=== PATIENT | male | born 1960 | race African-American/Black ===

== ENCOUNTER 2017-08-06 12:11 | Outpatient (CLI) | payer OTHER ==
--- NOTE | 2017-08-06 16:24 | MRI ---
CERVICAL SPINE MRI WITHOUT CONTRAST: Date: 08/06/17 HISTORY: Left-sided neck pain. Difficulty with range of motion. COMPARISON: None. TECHNIQUE: MRI of the cervical spine is performed without Gadolinium administration. Multisequential, multiplana r imaging is performed. FINDINGS: Appropriate T1 marrow signal intensity of the cervical vertebra. Cervical spine vertebral body height is maintained. No fracture. No significant STIR hyperintensity to suggest vertebral body edema or li gamentous injury. Visualized brain parenchyma, cervicomedullary junction, cervical cord, and the upper thoracic cord dey ve a normal size and signal intensity. C2-C3: No significant disc osteophyte complex. No significant central canal stenosis. Foramina are patent. C3-C4: Central disc osteophyte complex causes mass effect upon the ventral thecal sac and effaces the ventra l subarachnoid space. Mild deformity of the cervical cord, without T2 hyperintensity of the cord. Mil d central canal stenosis. Degenerative change in bilateral uncovertebral joints result in moderate bi lateral foraminal narrowing. C4-C5: Broad based disc osteophyte complex abuts the thecal sac. Mild central canal stenosis. Mild bilateral foraminal narrowing due to degenerative change of the uncovertebral joints. C5-C6: Broad based disc osteophyte complex abuts the thecal sac. Mild central canal stenosis. Degenerative c hanges of right and left uncovertebral joint result in moderate right and mild left foraminal narrowi ng. C6-C7: Broad based disc osteophyte complex abuts the thecal sac. No significant central canal stenosis. Mild right and mild to moderate left foraminal narrowing due to degenerative changes of the uncovertebral joint. C7-T1: No significant disc osteophyte complex. No significant central canal stenosis. Neural foramina are pa tent. IMPRESSION: Degenerative changes of cervical spine as above. POS: [facility]
== END 2017-08-06 12:12 | disposition home or self-care (01) ==
LOC: MRI 12:11
PROVIDERS: ATTEND Specialist
DX: M51.16 Intervertebral disc disorders with radiculopathy, lumbar region (principal); M99.81 Other biomechanical lesions of cervical region; M47.22 Other spondylosis with radiculopathy, cervical region
CPT/HCPCS: 72141

== ENCOUNTER 2017-08-15 08:38 | Outpatient (CLI) | payer OTHER ==
--- NOTE | 2017-08-15 14:17 | SJPRAD ---
BILATERAL KNEES TWO VIEWS: HISTORY: Knee pain. FINDINGS: The right knee shows mild to moderate arthritic change with some medial compartment narrowing and manolo e mild degenerative changes of the patellofemoral joint space. The changes are more severe on the left. There is severe medial compartment narrowing. There is als o prominent spur formation in the patellofemoral and lateral compartment. IMPRESSION: Severe arthritic changes of the left knee, and mild to moderate changes of the right knee. POS: [facility]
== END 2017-08-15 08:39 | disposition home or self-care (01) ==
LOC: MWLC RAD 08:38
PROVIDERS: ATTEND Family Medicine
DX: M25.561 Pain in right knee (principal); M25.562 Pain in left knee

== ENCOUNTER 2017-11-09 20:30 | Outpatient (CLI) | payer OTHER | END 2017-11-09 20:31 | disposition home or self-care (01) | LOC: SLEEPLAB 20:30 | PROVIDERS: ATTEND Family Medicine | DX: G47.33 Obstructive sleep apnea (adult) (pediatric) (principal); R06.83 Snoring; I10 Essential (primary) hypertension | CPT/HCPCS: 95810 ==

== ENCOUNTER 2018-02-11 19:30 | Outpatient (CLI) | payer OTHER | END 2018-02-11 19:31 | disposition home or self-care (01) | LOC: SLEEPLAB 19:30 | PROVIDERS: ATTEND Family Medicine | DX: G47.33 Obstructive sleep apnea (adult) (pediatric) (principal) | CPT/HCPCS: 95811 ==

== ENCOUNTER 2018-06-04 12:11 | Outpatient (CLI) | payer OTHER | END 2018-06-04 12:12 | disposition home or self-care (01) | LOC: CP 12:11 | PROVIDERS: ATTEND Internal Medicine | DX: J45.909 Unspecified asthma, uncomplicated (principal); G47.33 Obstructive sleep apnea (adult) (pediatric) | CPT/HCPCS: 94060; 94727; 94729 ==

== ENCOUNTER 2019-04-23 09:01 | Outpatient (CLI) | payer OTHER ==
--- NOTE | 2019-04-23 09:21 | RAD ---
EXAM: Chest 2 views: HISTORY: Dyspnea COMPARISON: None. FINDINGS: There is a normal-sized cardiomediastinal silhouette. There is no evidence of consolidation, mass, or pleural effusion. Degenerative changes are seen in the spine. IMPRESSION: No evidence of acute cardiopulmonary disease
== END 2019-04-23 09:02 | disposition home or self-care (01) ==
LOC: RAD 09:01
PROVIDERS: ATTEND Internal Medicine
DX: R06.00 Dyspnea, unspecified (principal)
CPT/HCPCS: 71046

== ENCOUNTER 2019-05-28 19:30 | Outpatient (CLI) | payer OTHER | END 2019-05-28 19:31 | disposition home or self-care (01) | LOC: SLEEPLAB 19:30 | PROVIDERS: ATTEND Internal Medicine | DX: G47.33 Obstructive sleep apnea (adult) (pediatric) (principal); R53.83 Other fatigue; R09.89 Other specified symptoms and signs involving the circulatory and respiratory systems; R51 Headache; R35.1 Nocturia; R06.83 Snoring; I10 Essential (primary) hypertension; G47.00 Insomnia, unspecified; G47.10 Hypersomnia, unspecified | CPT/HCPCS: 95810 ==

== ENCOUNTER 2020-01-16 06:34 | Observation (INO) | payer OTHER ==
[2020-01-15 14:26] VITALS: BMI 35.4
--- NOTE | 2020-01-16 06:50 | HP ---
HISTORY OF PRESENT ILLNESS: The patient is a 59-year-old male who fell and twisted his right knee on 12/15/19. He developed immediate pain and swelling and inability to extend his knee and to fully weightbear. He was seen in [place] and placed into a knee immobilizer. He was referred to my office and was seen for the 1st time in my office on 01/13/2020. He has not had any other medical treatment. PAST SOCIAL HISTORY: The patient lives by himself, but is otherwise in reasonably good health. PAST MEDICAL HISTORY: He does have a history of diabetes and hypertension. CURRENT MEDICATIONS: Include low-dose aspirin, Ambien, lisinopril, levothyroxine, Pravachol, gabapentin. ALLERGIES: TO POLLEN AND CIGARETTE SMOKE, BUT NO MEDICAL ALLERGIES. FAMILY HISTORY: Otherwise unremarkable. SOCIAL HISTORY: Otherwise unremarkable. REVIEW OF SYSTEMS: Otherwise unremarkable. PHYSICAL EXAMINATION: GENERAL: Reveals a healthy male. HEENT: Unremarkable. NECK: Supple. CHEST: Clear. HEART: Regular rate and rhythm. ABDOMEN: Soft, nontender. RECTAL: Deferred. GENITAL: Deferred. EXTREMITIES: Pertinent findings of the right knee. There is swelling over the anterior knee. There is moderate quad atrophy. There is tenderness over the anterior knee and a palpable defect over the inferior pole of the patella. He is unable to straight leg raise. There are no new lacerations. There are some old healed childhood superficial lacerations. Range of motion is from 5-40 degrees and is painful. He is unable to straight leg raise. Distal pulses are trace palpable. There is good capillary refill. Neurovascular exam is intact. DIAGNOSTIC STUDIES: X-rays of the right knee revealed an avulsion fracture in the inferior pole of the patella consistent with patellar tendon avulsion. There is also patella faisal and soft tissue swelling anteriorly. IMPRESSION: Avulsion fracture of inferior pole of patella with avulsion of patellar tendon attachment. PLAN: Surgical repair. The nature of the surgery, length of recovery, potential complications such as infection, loss of motion, incomplete relief, persistent stiffness, persistent weakness, inability to repair the tear, recurrent tear, need for additional treatment or repeat surgery have been discussed in detail. I explained that because the injury is already a month old that there is a high likelihood he may develop stiffness. Because the injury is a month old I think this should be done urgently and should be done soon and should not wait until the coronavirus pandemic has resolved. Job ID: [id number]
[2020-01-16 07:51] LABS: #Basophils 0.1 thou/uL (0.0-0.2); #Eosinphils 0.3 thou/uL (0.0-0.7); #Lymphocytes 2.4 thou/uL (1.20-3.40); #Monocytes 0.4 thou/uL (0.11-0.59); #Neutrophils 2.8 thou/uL (1.40-6.50); %Basophils 1.1 % (0.0-1.0); %Eosinophils 4.8 % (0.0-10.0); %Lymphocytes 40.8 % (21.0-51.0); %Monocytes 6.3 % (0.0-10.0); Hemoglobin 13.8 g/dL (14.0-18.0); Mean Corpuscular Volume 90.9 fL (78.0-98.0); Mean Platelet Volume 7.4 fL (7.4-10.4); Platelet Count 277 thou/uL (130-400); RBC Distribution Width 13.1 % (11.5-14.5); Red Blood Cell (RBC) Count 4.59 mill/uL (4.70-6.10)
[2020-01-16 08:10] LABS: Anion Gap 11 mmol/L (10-20); BUN (Urea Nitrogen) 17 mg/dL (8.4-25.7); Calc. Creatinine Clearance 85 mL/min (70-130); Calcium 9.4 mg/dL (7.8-10.44); Carbon Dioxide 28 mmol/L (22-29); Chloride 106 mmol/L (98-107); Estimated GFR-MDRD 61; Glucose 91 mg/dL (70-105); Potassium 4.9 mmol/L (3.5-5.1); Sodium 140 mmol/L (136-145)
[2020-01-16] MEDS ORDERED: Midazolam HCl 2 mg/2 ml Vial ONE (10:52)
[2020-01-16] MEDS ORDERED: Fentanyl 100 MCG/2 ML VIAL ONE ×4 (10:52→13:18)
[2020-01-16] MEDS ORDERED: Lidocaine 1% w/Epinephrine 1:100K 20 ML VIAL ONE (11:22)
[2020-01-16] MEDS ORDERED: Bupivacaine PF 0.5% 30 ML VIAL ONE (11:22)
[2020-01-16] MEDS ORDERED: Promethazine HCl 25 MG/ML VIAL IM PRN (12:33)
[2020-01-16] MEDS ORDERED: Promethazine HCl 25 MG/ML VIAL SLOW IVP PRN (12:33)
[2020-01-16] MEDS ORDERED: Ondansetron HCl/PF 4 MG/2 ML Vial IVP PRN (12:33)
[2020-01-16] MEDS ORDERED: Fentanyl 100 MCG/2 ML VIAL SLOW IVP PRN (13:04)
[2020-01-16] MEDS ORDERED: HYDROcodone/Acetaminophen 10/325 mg Tablet PO PRN (13:06)
[2020-01-16] MEDS ORDERED: Zolpidem Tartrate 5 MG TAB PO PRN (13:08)
[2020-01-16] MEDS ORDERED: Labetalol HCl 100 MG/20 ML VIAL ONE (13:10)
[2020-01-16] MEDS ORDERED: Lactated Ringer's 1,000 ML IV SCH (13:15)
[2020-01-16] MEDS ORDERED: Laxative Of Choice PO SCH (13:15)
[2020-01-16] MEDS ORDERED: Dexamethasone 20 MG/5 ML VIAL ONE (13:39)
[2020-01-16] MEDS ORDERED: EPHEDRINE 25 MG/5 ML SYRINGE ONE (13:39)
[2020-01-16] MEDS ORDERED: Succinylcholine Chloride 20 MG/ML 10 ml SYRINGE FS ONE (13:39)
[2020-01-16] MEDS ORDERED: PROPOFOL 200 MG/20 ML VIAL ONE (13:39)
[2020-01-16] MEDS ORDERED: Ketorolac Tromethamine 30 MG/ML VIAL ONE (13:39)
[2020-01-16] MEDS ORDERED: Lidocaine 1% PF 5 ML VIAL ONE (13:39)
[2020-01-16] MEDS ORDERED: Rocuronium Bromide 10 MG/ML (10ML VIAL) ONE (13:39)
[2020-01-16] MEDS ORDERED: Ondansetron PF 4 MG/2 ML Vial ONE (13:39)
[2020-01-16] MEDS ORDERED: Glycopyrrolate 0.2 MG/ML 5 ML SYRINGE ONE (13:39)
[2020-01-16] MEDS: Fentanyl 100 MCG/2 ML VIAL SLOW IVP PRN (14:20)
[2020-01-16] MEDS: HYDROcodone/Acetaminophen 10/325 mg Tablet PO PRN ×2 (15:06→20:46)
[2020-01-16] MEDS: CEFAZOLIN 2 GM in Premix Bag 1 BAG IVPB SCH ×2 (15:07→23:46)
--- NOTE | 2020-01-16 16:06 | EKG ---
Test Reason : PREOP Blood Pressure : / mmHG Vent. Rate : 057 BPM Atrial Rate : 057 BPM P-R Int : 160 ms QRS Dur : 090 ms QT Int : 424 ms P-R-T Axes : 060 044 -16 degrees QTc Int : [address] elevation, consider early repolarization Nonspecific ST and T wave abnormality Abnormal ECG No previous ECGs available Confirmed by JANES BARAKAT ([id number]) on 01/16/2020 4:06:28 PM Referred By: PARVEEN Confirmed By:JANES BARAKAT
--- NOTE | 2020-01-16 19:24 | OP ---
DATE OF PROCEDURE: 01/16/2020 BASKET MACHINE OPERATOR: Paloma Morales PA-C. ANESTHESIA: General. PREOPERATIVE DIAGNOSIS: Avulsion fracture of inferior pole of right patella with rupture of patellar tendon insertion. POSTOPERATIVE DIAGNOSIS: Avulsion fracture of the inferior pole of right patella with rupture of patellar tendon insertion. PROCEDURE PERFORMED: ORIF of avulsion fracture of the inferior pole of patella with repair of patellar tendon in right knee. OPERATIVE FINDINGS: There was complete disruption of the patellar tendon with a small avulsion fracture from the inferior pole of the patella with extension to the medial and lateral retinacula. No obvious intra-articular damage. Satisfactory repair was accomplished even of the injury that was a month old. DESCRIPTION OF PROCEDURE: After satisfactory anesthesia was induced in supine position, the patient was prepped and draped in routine manner. His right leg was elevated and exsanguinated with an Esmarch bandage and the tourniquet inflated to 300 mmHg. A longitudinal midline incision was carried down through the subcutaneous tissues. Bleeding points were controlled with Bovie cautery. Immediately upon entering the subcutaneous tissues, joint fluid was obtained and there was obvious avulsion fracture of the inferior pole of the patella with retraction of the patellar tendon. Using sharp and blunt dissection, the above pathology was delineated. The ends of the tendon were freshened. The small bony fragment was left attached to the patellar tendon. The bony bed on the inferior pole of the patella was developed with a rongeur. Two heavy #2 FiberWire sutures were then placed in the patellar tendon in a Zavaleta type stitch. These were then passed through drill holes in the patella and then tied with the knee in full extension. This was reinforced with multiple sutures and #2 Vicryl in the mediolateral retinaculum. A cerclage suture of cottony Dacron was then placed through the patellar tendon and cerclage above the superior pole of patella and then tied to further protect the repair. This appeared to give good stable repair. The knee could be flexed to approximately 60 degrees without excessive tension on the repair. The wound was thoroughly irrigated. The subcutaneous tissues were injected with a mixture of 30 mL of 0.5% Marcaine and 20 mL of 1% lidocaine with epinephrine. Subcutaneous tissues were closed with interrupted #1 and 2-0 Vicryl and the skin closed with a staple gun. A sterile bulky compressive dressing was applied and the tourniquet deflated after 55 minutes. The foot promptly pinked up. The patient was placed into his knee immobilizer with the knee in full extension and awakened and taken to the recovery room in stable condition. There were no apparent intraoperative complications. The estimated blood loss was negligible. The patient will be admitted for 23-hour observation for pain control, IV antibiotics, and also because he has no other transportation other than public transportation, Anesthesia does not want him to travel by himself until at least 24 hours postop. Job ID: [id number]
[2020-01-16] MEDS ORDERED: Gabapentin 300 MG CAP PO SCH (21:00)
[2020-01-16] MEDS ORDERED: Zolpidem Tartrate 5 MG TAB PO SCH (22:00)
[2020-01-16] MEDS ORDERED: Senokot S 8.6-50 MG TAB PO PRN (22:16)
[2020-01-16] MEDS ORDERED: Dextrose 50% Abboject 50 ML SYRINGE SLOW IVP PRN (22:19)
[2020-01-16] MEDS ORDERED: Dextrose 5% in Water 1,000 ML IV PRN (22:19)
--- NOTE | 2020-01-16 23:00 | CON ---
DATE OF CONSULTATION: TIME OF ASSESSMENT: 2099. REASON FOR CONSULTATION: Medical management/hypertension. PRIMARY CARE PHYSICIAN: Dr. Haley. CHIEF COMPLAINT: Mild throbbing knee pain, improving. HISTORY OF PRESENT ILLNESS: Mr. Castano is a 59-year-old gentleman, who is status post ORIF of the right patella. The patient has a known history of diabetes mellitus and hypertension with blood pressure being elevated earlier today in the 180 systolic. Therefore, consultation placed for medical management/blood pressure management. He takes lisinopril only for his blood pressure and since analgesia was given for his pain, his blood pressure has improved to the 160s. At present, he denies having any complaints except for throbbing discomfort in the right knee, which he states is tolerable. He was just given 2 tablets of [place]. He has had food since his surgery which was done earlier today. States he was originally going to be discharged home, but did not have a ride and therefore was kept overnight. He had surgery due to an avulsion fracture of the right patella with rupture of the patellar tendon insertion. The patient denies having any complaints. REVIEW OF SYSTEMS: Denies having any headaches or dizziness. No nausea or vomiting. Tolerating oral intake following surgery. Maintaining adequate hydration. Denies having any chest pain, palpitations, or shortness of breath. No abdominal pain. No urinary symptoms. Afebrile. All other review of systems are negative apart from those mentioned above in HPI. PAST MEDICAL HISTORY: 1. Hypertension. 2. Mixed hyperlipidemia. 3. Insomnia. 4. Chronic neck pain. 5. Morbid obesity. 6. Chronic low back pain. 7. Right shoulder rotator cuff injury. 8. Diabetes mellitus. 9. Hypothyroidism. 10. Asthma as a child. PAST SURGICAL HISTORY: 1. Left knee surgery. 2. Right portillo surgery. 3. Status post ORIF of the right patella done January 16, 2020. FAMILY HISTORY: His father at 63 and had history of diabetes, pancreatic cancer, prostate cancer. Mother at age 59 due to cancer. SOCIAL HISTORY: He denies any tobacco use. He drinks alcohol occasionally. Denies any illicit drug use. ALLERGIES: NO KNOWN DRUG ALLERGIES. CURRENT MEDICATIONS: 1. Tylenol with codeine. 2. Aspirin. 3. Gabapentin. 4. Levothyroxine. 5. Lisinopril. 6. Zolpidem tartrate. PHYSICAL EXAMINATION: GENERAL: Patient appears well developed, well nourished, is in no acute distress. He is found resting comfortably in bed. VITAL SIGNS: Temperature 98.3, pulse 73, respirations 16, O2 saturation 96% on room air, blood pressure 164/79. HEENT: Normocephalic and atraumatic. Pupils are equal, round, and reactive to light without scleral icterus. Oropharynx is clear. NECK: Supple. LUNGS: Clear to auscultation bilaterally without wheezes, rales, or rhonchi. CARDIAC: Regular rate and rhythm. ABDOMEN: Soft, nontender, nondistended. Normoactive bowel sounds present. No guarding or rigidity. EXTREMITIES: Dressing in place to the right knee. No lower extremity swelling or erythema or edema. Peripheral pulses strong and equal bilaterally. SKIN: Warm and dry. LABORATORY DATA: Obtained earlier this morning, white count 6.1, hemoglobin 13.8, hematocrit 41.8, platelets 277, neutrophils 47%. Sodium 140, potassium 4.9, BUN 17, creatinine 1.44, GFR 61, glucose 91. The patient with known history of CKD and renal function essentially stable. IMAGING DATA: None. IMPRESSION AND PLAN: Mr. Castano is a pleasant 59-year-old gentleman, with a known history of hyperlipidemia, hypothyroidism, diabetes mellitus, and hypertension, who is status post open reduction and internal fixation of the right patella done earlier today and referred to us for medical management/elevated blood pressure. His blood pressure has resolved since earlier today after given analgesia for the right knee pain. Blood pressure remains in the 160s and patient is asymptomatic. He states he feels well in himself and is without any complaints apart from the knee pain which is tolerable. He does mention he normally takes Ambien to help him sleep and this has been added to his home medications, but not given. I will go ahead and order a one time dose now. The patient will have labs done in the morning. Of note, he did have a preoperative EKG done showing sinus bradycardia with a heart rate of 57. The patient is tolerating p.o. intake. All other home medications were reconciled by Dr. Rowland. We will monitor BP and glucose. We are happy to continue following this patient. Thank you for this consultation. Case discussed with attending who agrees with plan as above. Job ID: [id number] [facility]
[2020-01-17] MEDS: HYDROcodone/Acetaminophen 10/325 mg Tablet PO PRN ×2 (04:51→11:46)
[2020-01-17] MEDS ORDERED: Levothyroxine Sodium 100 MCG TAB PO SCH (06:00)
[2020-01-17] MEDS: Fentanyl 100 MCG/2 ML VIAL SLOW IVP PRN (06:28)
[2020-01-17 08:22] LABS: #Lymphocytes 1.9 thou/uL (1.20-3.40); #Monocytes 0.7 thou/uL (0.11-0.59); #Neutrophils 6.5 thou/uL (1.40-6.50); %Basophils 0.4 % (0.0-1.0); %Eosinophils 0.4 % (0.0-10.0); %Lymphocytes 20.9 % (21.0-51.0); %Monocytes 7.5 % (0.0-10.0); %Neutrophils 70.8 % (42.0-75.0); Hemoglobin 13.7 g/dL (14.0-18.0); Mean Corpuscular HGB CONC 33.3 g/dL (32.0-36.0); Mean Corpuscular Hemoglobin 30.3 pg (27.0-31.0); Mean Corpuscular Volume 90.8 fL (78.0-98.0); Mean Platelet Volume 7.7 fL (7.4-10.4); Platelet Count 255 thou/uL (130-400); RBC Distribution Width 13.2 % (11.5-14.5); Red Blood Cell (RBC) Count 4.52 mill/uL (4.70-6.10); White Blood Cell (WBC) Count 9.2 thou/uL (4.8-10.8)
[2020-01-17] MEDS ORDERED: traMADol HCl 50 MG TAB PO PRN (08:28)
[2020-01-17] MEDS ORDERED: HYDROcodone/Acetaminophen 10/325 mg Tablet PO PRN (08:28)
[2020-01-17 08:41] LABS: Anion Gap 15 mmol/L (10-20); BUN (Urea Nitrogen) 13 mg/dL (8.4-25.7); Calc. Creatinine Clearance 101 mL/min (70-130); Calcium 9.7 mg/dL (7.8-10.44); Carbon Dioxide 27 mmol/L (22-29); Chloride 102 mmol/L (98-107); Estimated GFR-MDRD 74; Glucose 109 mg/dL (70-105); Potassium 4.6 mmol/L (3.5-5.1); Sodium 139 mmol/L (136-145)
[2020-01-17] MEDS ORDERED: Lisinopril 10 MG TAB PO SCH (09:00)
[2020-01-17] MEDS ORDERED: Famotidine/PF 20 mg/2ml Vial SLOW IVP SCH (09:00)
[2020-01-17] MEDS ORDERED: Aspirin Chewable 81 MG TAB PO SCH ×2 (09:00→21:00)
[2020-01-17 16:28] VITALS: BP 162/78; TEMP 98.4
--- NOTE | 2020-01-19 09:32 | DIS ---
DATE OF ADMISSION: 01/16/2020 DATE OF DISCHARGE: 01/17/2020 This is Paloma Morales PA-C dictating a report for Ponce Rowland MD. Discharge Summary and Short-Stay Note CONSULTANTS: [facility] and [facility]. PREOPERATIVE DIAGNOSIS: Avulsion fracture of inferior pole of right patella with rupture of patellar tendon insertion. POSTOPERATIVE DIAGNOSIS: Avulsion fracture of inferior pole of right patella with rupture of patellar tendon insertion. PROCEDURE PERFORMED: ORIF of avulsion fracture of the inferior pole of the patella with repair of patellar tendon in the right knee. BRIEF HOSPITAL COURSE: This is a 59-year-old male, who was indicated for the above-mentioned procedure after an injury approximately one month ago. He did well in the operative suite and postoperatively was admitted to [place] [address] postoperative surgical floor. Here, he worked with physical therapy on postoperative day #1. He ambulated well in a knee immobilizer with a walker. He was 50% partial weightbearing to the operative leg. His postoperative pain was managed with [place]. On postoperative day #1, he was discharged home with family. No complications incurred throughout his hospital stay. DISCHARGE DISPOSITION: Home. DISCHARGE CONDITION: Stable. DISCHARGE INSTRUCTIONS: The patient will partial weightbear 50% to the operative leg with a knee immobilizer. He will take pain medication as prescribed and as needed by Dr. Rowland. He will follow up as scheduled with Dr. Rowland in the clinic. Surgical site will be kept clean, dry, and intact until followup appointment. DISCHARGE MEDICATIONS: See NOV. Job ID: [id number]
== END 2020-01-17 16:28 | disposition home or self-care (01) ==
LOC: SDC 06:34 → SURG A 12:25
PROVIDERS: ADMIT Orthopaedic Surgery; ATTEND Orthopaedic Surgery
PROC: 0QSD04Z Reposition Right Patella with Internal Fixation Device, Open Approach (ICD-10-PCS; principal; 2020-01-16)
PROC: 0LQQ0ZZ Repair Right Knee Tendon, Open Approach (ICD-10-PCS; 2020-01-16)
DX: S82.091A Other fracture of right patella, initial encounter for closed fracture (principal); S86.811A Strain of other muscle(s) and tendon(s) at lower leg level, right leg, initial encounter; I10 Essential (primary) hypertension; E11.9 Type 2 diabetes mellitus without complications; E78.2 Mixed hyperlipidemia; E66.01 Morbid (severe) obesity due to excess calories; G89.29 Other chronic pain; M54.2 Cervicalgia; M54.5 Low back pain; E03.9 Hypothyroidism, unspecified; J45.909 Unspecified asthma, uncomplicated; G47.00 Insomnia, unspecified; Z79.82 Long term (current) use of aspirin; Z79.899 Other long term (current) drug therapy; Z88.8 Allergy status to other drugs, medicaments and biological substances; Z68.35 Body mass index [BMI] 35.0-35.9, adult
CPT/HCPCS: 36415; 36416; 80048; 85025; 93005; 93010; 96365; 96366; 96375; 96376; C1713; G0378; J0690; J1100; J1885; J2001; J2250; J2405; J2704; J3010; S0020; S0028